=== PATIENT | female | born 1980 | race Caucasian/White ===

== ENCOUNTER 2024-01-02 16:52 | Emergency (ER) | payer SELFPAY ==
[2024-01-02 17:11] VITALS: BP 143/82; PULSE 73; RESP 18; TEMP 36.9; O2SAT 100; BMI 27.2
--- NOTE | 2024-01-02 17:16 | XR_ITS ---
PROCEDURE INFORMATION: Exam: XR Right Elbow Exam date and time: 01/02/2024 5:19 PM Age: 43 years old Clinical indication: Injury or trauma; Fall; Work related; Blunt trauma (contusions or hematomas); Right; Injury details: Fell down stairs, laceration ap near elbow TECHNIQUE: Imaging protocol: Radiologic exam of the right elbow. Views: 3 or more views. COMPARISON: No relevant prior studies available. FINDINGS: Bones/joints: Normal. Soft tissues: Normal. IMPRESSION: No acute findings.
--- NOTE | 2024-01-02 17:38 | ED_ITS ---
Discharge Plan Prescriptions Prescriptions: No Action buspirone 5 mg tablet 5 mg PO DAILY Patient Comments: TAKE 1 TABLET BY MOUTH TWICE DAILY sertraline 50 mg tablet 50 mg PO DAILY Patient Comments: TAKE 3 TABLETS BY MOUTH ONCE DAILY Referrals Follow up/Referrals: Provider,Referral, MD [Primary Care Provider] - See instructions Activity Restrictions/Add. Instructions Additional Instructions/Restrictions: Suture instructions: ?You have required stitches today. Please read the following instructions so you know how to care for them: ?1. Keep wound area dry for the first 24 hours. 2?? May clean gently with mild soap and water, after 48 hours to prevent crusting over suture knots. 3. You may shower if your provider gives permission but do not take a bath until the skin is healed.. 4. Never leave a wet dressing or Band-Aid on your stitches as this allows bacteria to reach the area and may cause infection. Band-aids can cause the wound to sweat and not recommended to wear for long periods of time Watch for signs of infection: ? Increasing redness, tenderness or warmth around the suture site ? Unusual swelling around the site ? Appearance of pus around each suture or any red streaks ? Fever If you develop any of the above signs or symptoms of infection, Follow up with Family Physician immediately 5. Suture removal in _7-10___days 6. Return to [facility] or follow up with family doctor for removal. This can be done by any medical provider dur?ing regular hours on Monday through Monday, by appointment. Clinical Impressions Clinical Impression: Laceration Instructions Patient Instructions: DI for Laceration Repair, DI for Contusion, How To Perform RICE (Rest, Ice, Compress, Elevate) Print Language Print Language: Citizen Of [place] Discharge ED Provider: [facility] [place] HPI General Stated complaint: [id number]/01@1500 Fall RT arm lac Mode of Arrival: Ambulatory Source of Information: Patient Time Seen by Provider: 01/02/24 17:41 Description of Symptoms (Recalled from Triage Doc. by RN): FELL ON CONCRETE AND CUT OPEN ARM, STATES BACK OF ELBOW/ARM IS SORE HEENT Symptoms (Recalled from RN notes): No Resp Symptoms (Recalled from RN notes): No Skin Symptoms (Recalled from RN notes): Yes MS Symptoms (Recalled from RN notes): No Functional Status (Recalled from RN notes): WNL History of Present Illness Provider Complaint: Patient states that she slipped on the concrete steps and hit her right elbow causing laceration and state that it feels sore and hurts/pulls when she moves it States that she was worried that she may have to have stitches so she came in [facility] denies hitting her head and denies any other injury reports up to date on tetanus last tetanus 2 yrs ago Related Data Home Medications ?Medication ?Instructions ?Recorded ?Confirmed buspirone 5 mg tablet 5 mg PO DAILY 01/02/24 01/02/24 sertraline 50 mg tablet 50 mg PO DAILY 01/02/24 01/02/24 Allergies Allergy/AdvReac Type Severity Reaction Status Date / Time No Known Allergies Allergy Verified 01/02/24 17:14 Worker's Comp Is this a Worker's Comp case?: No [facility] Disclaimer: The information contained in this section may have been updated after the patient was seen, as this information can be updated by other users. Social History Smoking Status: Unknown if ever smoked alcohol intake: never current occupational status: employed ROS Obtained: Yes All systems reviewed & no additional complaints except as documented and Yes Systems reviewed as appropriate & no additional complaints except as documented Constitutional Constitutional: Reports system reviewed and no additional complaints, except as documented and Reports as per HPI ENT Ears, Nose, Mouth, and Throat: Reports system reviewed and no additional complaints, except as documented and Reports as per HPI Cardiovascular Cardiovascular: Reports system reviewed and no additional complaints, except as documented and Reports as per HPI Respiratory Respiratory: Reports system reviewed and no additional complaints, except as documented and Reports as per HPI Gastrointestinal Gastrointestingal: Reports system reviewed and no additional complaints, except as documented and as per HPI Musculoskeletal Musculoskeletal: Reports system reviewed and no additional complaints, except as documented and Reports as per HPI Comments: pain in right elbow and laceration to elbow Physical Exam General General appearance: alert and in no apparent distress ENT ENT exam: Present mucous membranes moist Respiratory Respiratory exam: Present normal lung sounds bilaterally; Absent respiratory distress or wheezes Cardiovascular Cardiovascular exam: Present regular rate, normal rhythm and normal heart sounds Expanded Upper Extremity Exam Right: Elbow exam: Present tenderness, swelling and laceration Forearm/Wrist exam: Present normal inspection Hand exam: Present normal inspection Neurological Exam Neurological exam: Present alert, oriented X3 and normal gait Medical Decision Making Medical Records Screening: Per USPSTF and CDC recommendations, given the prevalence of disease in our region, it is our hospital?s policy to screen for HIV and viral Hepatitis for all patients aged 18 and over and those with ongoing risk factors. Kaushik Inquiry Pt receiving controlled substance: No Kaushik was queried for this patient: No Vital Signs: 01/02/24 17:11 Temperature 98.5 F Temperature Source Oral Pulse Rate [Left Radial] 73 Respiratory Rate 18 Blood Pressure [Left Arm] 143/82 H Blood Pressure Mean [Left Arm] 102 02 Sat by Pulse Oximetry 100 Orders (Tests/Meds): ORDERS Category Date Time Status Elbow XR right minimum 3 views [XR elbow RT min 3V] Exams 01/02/24 17:16 Taken Stat Radiology Data #1: Image(s): Elbow Image Reviewed: Yes I have reviewed radiologist's interpretation IMPRESSION: No acute findings. Procedures Laceration Laceration 1: Site: upper extremity Side (If applicable): right Size (cm): 1.5 Description: linear Depth: simple, single layer Local Anesthetic: lidocaine 1% Amount of anesthesia used (mL): 2 Pre-repair: wound explored and irrigated extensively Skin layer closed with: nylon Size (cm): 4-0 Number of sutures: 6 Technique: simple, interrupted (wound edges approximated well)
[2024-01-02 18:37] VITALS: BP 143/82; PULSE 73; RESP 18; TEMP 36.9
== END 2024-01-02 18:37 | disposition home or self-care (01) ==
LOC: UTC 16:59
PROVIDERS: Emergency Provider Nurse Practitioner
DX: S41.111A Laceration without foreign body of right upper arm, initial encounter (principal); W19.XXXA Unspecified fall, initial encounter
CPT/HCPCS: 12001; 73080; 99214; G0382

== ENCOUNTER 2024-01-17 09:22 | Emergency (ER) | payer SELFPAY ==
[2024-01-17 09:40] VITALS: BP 122/93; PULSE 78; RESP 18; TEMP 37.2; O2SAT 100; BMI 25.8
== END 2024-01-17 09:42 | disposition home or self-care (01) ==
LOC: UTC 09:26
PROVIDERS: Emergency Provider Nurse Practitioner
DX: Z48.02 Encounter for removal of sutures (principal)